=== PATIENT | female | born 1975 | race Caucasian/White ===

== ENCOUNTER 2021-06-30 10:55 | Emergency (ER) | payer OTHER, SELFPAY ==
--- NOTE | 2021-06-30 11:04 | XR_ITS ---
WS: [id number] Exam: XR chest 1V portable [id number] Date/Time of Exam: 06/30/2021 11:20 AM Reason For Exam: chest pain Comparison 01/21/2017. Findings: The lungs are clear and fully expanded. Costophrenic angles are sharp. No infiltrates. Bronchovascula r relief appears normal. Cardiac silhouette is unremarkable. Bony elements are intact. XR/XR chest 1V portable [id number] IMPRESSION: Unremarkable chest radiograph.
[2021-06-30 11:30] VITALS: BP 130/82; PULSE 83; RESP 18; TEMP 36.6; O2SAT 100; BMI 30.7
--- NOTE | 2021-06-30 11:39 | ED_ITS ---
HPI - Chest Pain General: Chief Complaint: Chest Pain Stated Complaint: CHEST PRESSURE, DIZZINESS AND NAUSIA Time Seen by Provider: 06/30/21 11:39 Source: patient Mode of arrival: ambulatory Limitations: no limitations History of Present Illness: HPI narrative: Patient is a 45-year-old female presents to ED today with complaint of chest pain that began around 3 hours ago after she had sat down on the couch. She is not complaining of shortness of breath. She states she has had these episodes previously. Physical Exam Const: COMMON NORMALS: no acute distress, no limitations and alert Resp: COMMON NORMALS: normal respiratory effort and clear to auscultation bilaterally AUSCULTATION: clear to auscultation bilaterally Cardio: COMMON NORMALS: regular rate and regular rhythm RATE: regular rate RHYTHM: regular rhythm Neuro: SENSORIUM/ORIENTATION: Yes alert Course Vital Signs: Vital signs: Vital Signs Temperature 97.9 F 06/30/21 11:30 Pulse Rate 83 06/30/21 11:30 Respiratory Rate 18 06/30/21 11:30 Blood Pressure 130/82 06/30/21 11:30 Pulse Oximetry 100 06/30/21 11:30 MDM - Chest Pain MDM Narrative: Medical decision making narrative: Brief history and physical exam was performed as part of the triage process. Due to current ED wait time patient will be placed in waiting room until a room becomes available. Explained to patient he/she will be seen in order of severity. Patient is currently safe to wait in the waiting room until we can get them placed. Patient informed that if condition worsens at any time to please let the electrician front know. Patient eloped from the ED waiting room. She did not sign an AMA form. I was not able to physically speak to patient prior to her leaving. Lab Data: Labs: Lab Results 06/30/21 06/30/21 06/30/21 12:44 12:44 12:44 WBC 11.4 10^3/uL H 10 ^3/uL (4.0-10.0) RBC 5.17 10^6/uL 10^6 /uL (4.1-5.3) Hgb 15.5 g/dL H g/dL (11.5-15.3) Hct 46.5 % % (37.0-47.0) MCV 89.9 fl fl (81-99) MCH 30.0 pg pg (28.0-34.0) MCHC 33.3 g/dL g/dL (30.0-36.0) RDW 13.0 % % (12.1-15.1) Plt Count 360 10^3/cmm 10^3 /cmm (130-400) MPV 9.9 fL fL (7.4-10.4) Neut % (Auto) 57.0 % % Lymph % (Auto) 34.8 % % [place] % (Auto) 4.9 % % Eos % (Auto) 2.5 % % Baso % (Auto) 0.5 % % Neut # (Auto) 6.51 10^3/uL 10^3 /uL (1.8-7.7) Lymph # (Auto) 4.0 10^3/uL 10^3/ uL (0.8-4.8) [place] # (Auto) 0.6 10^3/uL 10^3/ uL (0.2-0.9) Eos # (Auto) 0.3 10^3/uL 10^3/ uL (0.0-0.8) Baso # (Auto) 0.1 10^3/uL 10^3/ uL (0.0-0.1) Nucleated RBC % (a uto) 0 % % Nucleated RBCs # 0.0 /100WBC /100W BC Sodium 140 mmol/L mmol/L (136-145) Potassium 4.3 mmol/L mmol/L (3.5-5.1) Chloride 103 mmol/L mmol/L (98-107) Carbon Dioxide 23 mmol/L mmol/L (22-29) Anion Gap 18.3 (5-19) BUN 15 mg/dL mg/dL (6-20) Creatinine 0.7 mg/dL mg/dL (0.5-0.9) GFR Calculation 91.3 mL/min mL/mi n (90-130) Glucose 75 mg/dL mg/dL (65-115) Calculated Osmolal ity 290 mOsm/kg mOsm/ kg (285-295) Calcium 9.0 mg/dL mg/dL (8.5-10.5) Total Bilirubin 0.2 mg/dL mg/dL (0.15-1.2) AST 12 U/L U/L (0-32) ALT 15 U/L U/L (0-33) Alkaline Phosphata se 64 IU/L IU/L (35-105) Troponin T Baselin e 6 ng/L ng/L (0-10) Total Protein 7.5 g/dL g/dL (6.6-8.7) Albumin 4.5 g/dL g/dL (3.5-5.2) Globulin 3.0 g/dL g/dL (1.3-4.6) HCG, Qual 06/30/21 12:44 WBC RBC Hgb Hct MCV MCH MCHC RDW Plt Count MPV Neut % (Auto) Lymph % (Auto) [place] % (Auto) Eos % (Auto) Baso % (Auto) Neut # (Auto) Lymph # (Auto) [place] # (Auto) Eos # (Auto) Baso # (Auto) Nucleated RBC % (a uto) Nucleated RBCs # Sodium Potassium Chloride Carbon Dioxide Anion Gap BUN Creatinine GFR Calculation Glucose Calculated Osmolal ity Calcium Total Bilirubin AST ALT Alkaline Phosphata se Troponin T Baselin e Total Protein Albumin Globulin HCG, Qual Negative (Negative) Discharge Plan Discharge Patient Disposition: Left Against Medical Advice Coding Level of Care Code ED Repair Order Clerk for Chg Fwd Exam Expanded Problem Focused
[2021-06-30 12:50] LABS: Basophils # 0.1 10^3/uL (0.0-0.1); Basophils % 0.5 %; Eosinophils # 0.3 10^3/uL (0.0-0.8); Eosinophils % 2.5 %; Hematocrit 46.5 % (37.0-47.0); Hemoglobin 15.5 g/dL (11.5-15.3); Lymphocytes % 34.8 %; Mean Corpuscular HGB Conc 33.3 g/dL (30.0-36.0); Mean Corpuscular Volume 89.9 fl (81-99); Mean Platelet Volume 9.9 fL (7.4-10.4); Monocytes # 0.6 10^3/uL (0.2-0.9); Monocytes % 4.9 %; Neutrophils # 6.51 10^3/uL (1.8-7.7); Nucleated Red Blood Cells % 0 %; Platelet Count 360 10^3/cmm (130-400); Red Blood Count 5.17 10^6/uL (4.1-5.3); White Blood Count 11.4 10^3/uL (4.0-10.0)
[2021-06-30 13:10] LABS: Alanine Aminotransferase 15 U/L (0-33); Albumin Level 4.5 g/dL (3.5-5.2); Alkaline Phosphatase 64 IU/L (35-105); Anion Gap 18.3 (5-19); Aspartate Amino Transferase 12 U/L (0-32); Blood Urea Nitrogen 15 mg/dL (6-20); Carbon Dioxide 23 mmol/L (22-29); Chloride 103 mmol/L (98-107); Glomerular Filtration Rate 91.3 mL/min (90-130); Glucose 75 mg/dL (65-115); Osmolality Calculated 290 mOsm/kg (285-295); Potassium 4.3 mmol/L (3.5-5.1); Sodium 140 mmol/L (136-145); Total Bilirubin 0.2 mg/dL (0.15-1.2); Total Protein 7.5 g/dL (6.6-8.7)
[2021-06-30 13:11] LABS: Troponin(5th) Baseline 6 ng/L (0-10)
[2021-06-30 13:27] LABS: HCG, Serum Qual Negative (Negative)
--- NOTE | 2021-06-30 17:04 | ECG_ITS ---
[facility] Test Date: 2021-06-30 Pat Name: Phoebe Johnson Department: Room: Gender: Female Client Service Administrator: : [id number] Requested By: Kell Vargas Order Number: [id number] Annetta MD: JOSEFA CROWDER Measurements Intervals [place] Rate: 82 P: 59 LA: 152 QRS: 76 QRSD: 79 T: 42 QT: 338 QTc: 395 Interpretive Statements SINUS RHYTHM Compared to ECG 01/21/2017 02:48:37 Sinus arrhythmia no longer present First degree AV block no longer present Electronically Signed On 06-30-2021 19:04:44 NURSE OBGYN by JOSEFA CROWDER [email or web address]
== END 2021-06-30 15:07 | disposition left against medical advice (07) ==
PROVIDERS: Physician Assistant; Emergency Provider Family Medicine
DX: Z53.21 Procedure and treatment not carried out due to patient leaving prior to being seen by health care provider (principal)
CPT/HCPCS: 36415; 71045; 80053; 84484; 84703; 85025; 93005

== ENCOUNTER 2023-02-21 20:14 | Emergency (ER) | payer SELFPAY ==
--- NOTE | 2023-02-21 20:17 | XRR_ITS ---
PROCEDURE INFORMATION: Exam: XR Right Knee Exam date and time: 02/21/2023 8:35 PM Age: 47 years old Clinical indication: Right; Patient HX: RT knee pain with swelling. No recent injury. TECHNIQUE: Imaging protocol: Radiologic exam of the right knee. Views: 3 views. COMPARISON: No relevant prior studies available. FINDINGS: Bones/joints: Normal. Soft tissues: Normal. XR/XR knee RT 3V* [id number] IMPRESSION: No acute findings.
[2023-02-21 20:19] VITALS: BP 131/83; PULSE 74; RESP 14; TEMP 36.8; O2SAT 97
--- NOTE | 2023-02-21 21:02 | ED_ITS ---
HPI - Extremity Problem General: Chief complaint: Extremity Injury, Lower Stated complaint: right knee swollen Time Seen by Provider: 02/21/23 20:17 History of Present Illness: Phoebe is a 47-year-old female that presents to the emergency department with complaints of right knee pain x1 month. Patient states of the knee. This became tender and it has become more painful as her activity progresses. Patient has trialed 3 doses of ibuprofen prior to coming to the ER Patient denies any trauma or injury. She denies any falls Associated symptoms: Deny chest pain, fever(s) or rash Review of Systems General: Reports: 10 or more systems reviewed and unremarkable except in HPI and below Const: Denies: fever(s), chills, change in appetite, change in weight, fatigue or malaise Eyes: Denies: change in vision, eye discomfort, eye discharge or eye redness ENMT: Denies: throat pain, enlarged tonsils, odynophagia, hoarseness, ear or mastoid pain, ear discharge, change in hearing, tinnitus, nasal discharge, nasal congestion, post nasal drip or sinus pain Card: Denies: chest pain, palpitations, irregular heart rhythm, edema, dyspnea on exertion, orthopnea or leg pain with exertion Resp: Denies: dyspnea, productive cough, non-productive cough, wheezing, stridor or chest congestion GI: Denies: abdominal pain, nausea, vomiting, dysphagia, diarrhea, constipation, bloating, GI cramping or hematochezia : Denies: flank pain, difficulty voiding, dysuria, urinary frequency, urinary urgency, urinary hesitancy, oliguria or hematuria Musc: Denies: neck pain, back pain, extremity pain, joint pain, joint swelling, joint redness, joint warmth or muscle weakness Skin/Breast: Denies: rash, pruritus, erythema, photosensitivity or new lesions Neuro: Denies: headache(s), numbness in extremities, weakness in extremities, sensory changes, lack of coordination, difficulty walking, frequent falls, dizziness, confusion, Slurred speech present, difficulty communicating thoughts, seizure-like activity or involuntary movements Endo: Denies: polyuria, polydipsia or tired all the time Kieran/Lymph: Denies: easy bruising or easy bleeding [facility] ED Female Reproductive History: Date of last menstrual period: 02/21/23 Physical Exam Const: COMMON NORMALS: no acute distress, patient oriented x3 and alert GENERAL APPEARANCE: cooperative ORIENTATION/CONSCIOUSNESS: Yes awake, Yes oriented to person, Yes oriented to place and Yes oriented to time Neck/C-Spine: COMMON NORMALS: full ROM GENERAL: Yes normal visual inspection Chest: COMMONS NORMALS: normal inspection of the chest Breast/axilla inspection: Yes no chest deformity, asymmetry, normal contours, no nodules, masses, tenderness Resp: COMMON NORMALS: normal respiratory effort, No retractions, No use of accessory muscles and clear to auscultation bilaterally EFFORT & INSPECTION: Yes able to speak in complete sentences and Yes symmetric chest movement AUSCULTATION: clear to auscultation bilaterally Extremity: COMMON NORMALS: normal to inspection NARRATIVE EXTREMITY EXAM: PatientRight lower extremity: Skin is clean dry and intact She has ecchymosis and edema noted to the medial superior aspect of the knee joint. Denies any injuries. There are no wounds. She has full active range of motion of the hip and knee She is able to dorsiflex plantarflex foot She is able to dorsiflex great toe Sensation intact to light touch in medial, lateral, dorsal, plantar surface of the foot and first webspace DP pulses palpable and cap refills less than 3 seconds Patient has a negative Sylvia, anterior drawer, varus and valgus stress test Patient is able to perform a straight leg raise GENERAL: Yes normal exam except as noted Neuro: COMMON NORMALS: patient oriented x3 SENSORIUM/ORIENTATION: Yes alert, Yes oriented to person, Yes oriented to place and Yes oriented to time CRANIAL NERVES: Yes CN normal except as noted Skin: COMMON NORMALS: no rashes or lesions noted, no wounds and turgor normal GENERAL SKIN EXAM: no rashes or lesions noted and turgor normal Course Vital Signs: Vital signs: Vital Signs Temperature 98.3 F 02/21/23 20:19 Pulse Rate 74 02/21/23 20:19 Respiratory Rate 14 02/21/23 20:19 Blood Pressure 131/83 02/21/23 20:19 Pulse Oximetry 97 02/21/23 20:19 Oxygen Delivery Me thod Room Air 02/21/23 20:19 MDM - Extremity (Nontraumatic) Medical Decision Making Patient was evaluated in the emergency department due to right knee pain x1 month. She underwent XR imaging of the knee which revealed no acute finding. I assessed the stability of the joint which did not reveal any instability. Patient I talked about pain management. Giving her a dose of Toradol here in the emergency department as well as a Zofran. Patient is to follow-up with her primary care doctor. In the meantime I am sending her home with Toradol for 3 days and Zofran. All questions answered Lab Data Radiology Impressions Knee X-Ray 02/21/23 20:17 IMPRESSION: No acute findings. Discharge Plan Discharge Patient Disposition: Home Clinical Impression: Acute knee pain, Localized soft tissue swelling Condition: Stable Prescriptions: New ketorolac 10 mg tablet 10 mg PO Q8H PRN (Reason: pain) 4 Days Qty: 12 0RF ondansetron 4 mg tablet,disintegrating 4 mg PO Q8H PRN (Reason: nausea and vomiting) 4 Days Qty: 12 0RF Discharge Orders: Discharge ED (Routine); Ordered 02/21/23 Ordered By: Pamela Mccarthy Discharge Diet: Advance as tolerated Discharge Activity: Resume usual activity Patient Instructions: Swollen Joint (ED), Pain Management Activity Restrictions/Additional Instructions: If pain does not improve please follow-up with your primary care doctor for additional diagnostic imaging and evaluation. Coding Level of Care Code ED Translator Deaf for Cheryl Zamarripa
[2023-02-21] MEDS: ketorolac 30 mg/mL INJ IM (21:08)
[2023-02-21] MEDS: ondansetron 4 MG Tablet PO (21:11)
== END 2023-02-21 21:37 | disposition home or self-care (01) ==
PROVIDERS: Emergency Provider Nurse Practitioner
DX: M25.561 Pain in right knee (principal); R60.0 Localized edema
CPT/HCPCS: 73562; 96372; 99284; J1885; Q0162